=== PATIENT | female | born 1940 ===

== ENCOUNTER 2018-04-30 13:08 | Inpatient (IN) | payer MEDICARE, MEDICAID ==
--- NOTE | 2018-04-30 13:31 | C.PDOC ---
History Of Present Illness 77 y/o female presents to the ED complaining of SOB for the last 2 weeks. Patient reports associated chest pressure, and notes SOB is worse on exertion. She also notes her legs are swollen. Patient has PMHx of A Fib and has not seen her doctor as he retired a month ago. States she was referred to Dr. Rocha but has not seen him yet. Otherwise she denies any dizziness, palpitations, nausea, vomiting, abdominal pain, fevers, visual changes, or leg pain. Time Seen by Provider: 04/30/18 13:12 Chief Complaint (Nursing): Shortness Of Breath History Per: Patient History/Exam Limitations: no limitations Onset/Duration Of Symptoms: Days Current Symptoms Are (Timing): Still Present Quality: Pressure Exacerbating Factor(s): Laying Flat Associated Symptoms: Chest Pain, Ankle/Leg Swelling Past Medical History Reviewed: Historical Data, Nursing Documentation, Vital Signs Vital Signs: Last Vital Signs Temp 98.1 F 04/30/18 13:19 Pulse 82 04/30/18 13:19 Resp 18 04/30/18 13:19 BP 155/84 H 04/30/18 13:19 Pulse Ox 99 04/30/18 13:19 - Medical History PMH: Arthritis, Asthma, Diabetes, HTN, Hypercholesterolemia Other Surgeries: Eye surgery, Hysterectomy Family History: States: Unknown Family Hx - Social History Hx Alcohol Use: No Hx Substance Use: No - Immunization History Hx Tetanus Toxoid Vaccination: No Hx Influenza Vaccination: No Hx Pneumococcal Vaccination: No Review Of Systems Constitutional: Negative for: Fever, Chills Eyes: Negative for: Vision Change Cardiovascular: Positive for: Chest Pain ("pressure"). Negative for: Palpitations, Light Headedness Respiratory: Positive for: Shortness of Breath, SOB with Excertion Gastrointestinal: Negative for: Nausea, Vomiting, Abdominal Pain, Diarrhea Musculoskeletal: Negative for: Back Pain Skin: Negative for: Rash Neurological: Negative for: Weakness, Numbness, Dizziness Physical Exam - Physical Exam Appears: Non-toxic, No Acute Distress, Other (Appears winded at rest) Skin: Warm, Dry, No Rash Head: Atraumatic, Normacephalic Eye(s): bilateral: Normal Inspection, PERRL, EOMI Oral Mucosa: Moist Neck: Normal ROM, Supple Chest: Symmetrical Cardiovascular: Rhythm Irregular (Irregularly Irregular), Murmur (Systolic murmur) Respiratory: No Decreased Breath Sounds, Rales (Bibasilar), No Rhonchi, No Wheez ing Gastrointestinal/Abdominal: Soft, No Tenderness, No Distention Extremity: Normal ROM, No Calf Tenderness, Swelling (Tense pitting edema bilaterally, all the way up to thighs) Pulses: Left Dorsalis Pedis: Normal, Right Dorsalis Pedis: Normal Neurological/Psych: Oriented x3, Normal Cranial Nerves, Other (No focal deficits) ED Course And Treatment - Laboratory Results Result Diagrams: 04/30/18 14:13 04/30/18 14:13 Lab Interpretation: Abnormal (BNP 2510) ECG: Interpreted By Me ECG Rhythm: Atrial Fibrillation (with old inferior and anterior infarcts) ECG Interpretation: No Acute Changes O2 Sat by Pulse Oximetry: 99 (RA) Pulse Ox Interpretation: Normal - Radiology CXR: Interpreted by Me CXR Interpretation: Yes: Cardiomegaly (with CHF and right pleural effusion) Progress Note: Labs, EKG, and CXR ordered. Patient given 40mg IV Lasix. Reevaluation Time: 15:08 Reassessment Condition: Improved (after IV lasix.) - Physician Consult Information Time Consulting Physician Contacted: 15:09 Physician Contacted: Michelle Alfaro Outcome Of Conversation: Patient to be admitted to [facility] for CHF Disposition - Disposition Disposition: HOSPITALIZED Disposition Time: 15:10 Condition: IMPROVED - POA Present On Arrival: None - Clinical Impression Clinical Impression: Acute CHF - Scribe Statement The provider has reviewed the documentation as recorded by the Alexis Abarca Provider Attestation: All medical record entries made by the Alexis were at my direction and personally dictated by me. I have reviewed the chart and agree that the record accurately reflects my personal performance of the history, physical exam, medical decision making, and the department course for this patient. I have also personally directed, reviewed, and agree with the discharge instructions and disposition.
[2018-04-30 14:19] LABS: BASO # 0.1 K/uL (0.0-0.2); BASO % 1.1 % (0.0-2.0); EOS # 0.1 K/uL (0.0-0.7); EOS % 2.4 % (0.0-4.0); HEMOGLOBIN 10.2 g/dL (11.0-16.0); LYMPH # 0.8 K/uL (1.0-4.3); LYMPH % 16.6 % (20.0-40.0); MEAN CELL VOLUME 92.5 fL (81.0-99.0); MEAN CORPUSCULAR HEMOGLOBIN 28.8 pg (27.0-31.0); MEAN CORPUSCULAR HGB CONC 31.1 g/dL (33.0-37.0); MEAN PLATELET VOLUME 10.2 fL (7.2-11.7); MONO # 0.6 K/uL (0.0-0.8); MONO % 12.2 % (0.0-10.0); NEUT # 3.2 K/uL (1.8-7.0); NEUT % 67.7 % (50.0-75.0); NRBC % 0.1 % (0.0-2.0); RBC 3.53 Mil/uL (3.80-5.20); RED CELL DISTRIBUTION WIDTH 16.6 % (11.5-14.5); WHITE BLOOD COUNT 4.8 K/uL (4.8-10.8)
[2018-04-30 14:39] LABS: BLOOD UREA NITROGEN 26 mg/dL (7-17); CALCIUM 9.3 mg/dl (8.6-10.4); GFR NON-AFRICAN AMERICAN 44
[2018-04-30 14:43] LABS: ALB/GLOB RATIO 1.1 (1.0-2.1); ALBUMIN 4.3 g/dL (3.5-5.0); ALT/SGPT < 6 U/L (9-52); AST/SGOT 52 U/L (14-36)
[2018-04-30 14:49] LABS: B-TYPE NATRIURETIC PEPTIDE 2510 pg/mL (0-900); SQUAMOUS EPITHIAL 2 /hpf (0-5); URINE BACTERIA MANY (<OCC); URINE BILIRUBIN NEGATIVE (NEGATIVE); URINE BLOOD NEGATIVE (NEGATIVE); URINE CLARITY Clear (Clear); URINE COLOR Yellow (YELLOW); URINE GLUCOSE (UA) NORMAL (Normal); URINE LEUKOCYTE ESTERASE NEG Leu/uL (Negative); URINE PROTEIN NEGATIVE (NEGATIVE); URINE UROBILINOGEN NORMAL mg/dL (0.2-1.0)
--- NOTE | 2018-04-30 17:06 | RAD ---
HISTORY: SOB COMPARISON: None available TECHNIQUE: Chest, one view. FINDINGS: Examination limited by habitus and hypoinflation. LUNGS: Small right pleural effusion and/or consolidation. Right hilar prominence. Mild pulmonary venous congestion. No definite pneumothorax. CARDIOVASCULAR: Cardiomegaly. OSSEOUS STRUCTURES: No acute osseous abnormality identified. VISUALIZED UPPER ABDOMEN: Unremarkable. OTHER FINDINGS: None. IMPRESSION: Cardiomegaly. Small right pleural effusion and/or consolidation. Right hilar prominence. Mild pulmonary venous congestion.
[2018-04-30 17:52] VITALS: RESP 20
--- NOTE | 2018-04-30 19:56 | CP.PCM.HP ---
Past Patient History - Past Social History Smoking Status: Never Smoked - CARDIAC Hx Hypercholesterolemia: Yes Hx Hypertension: Yes - PULMONARY Hx Asthma: Yes - HEENT Hx HEENT Problems: Yes Hx Cataracts: Yes Hx Glaucoma: Yes - ENDOCRINE/METABOLIC Hx Endocrine Disorders: Yes Hx Diabetes Mellitus Type 2: Yes - MUSCULOSKELETAL/RHEUMATOLOGICAL Hx Arthritis: Yes - PSYCHIATRIC Hx Substance Use: No - SURGICAL HISTORY Hx Surgeries: Yes Hx Hysterectomy: Yes Other/Comment: eye sx - ANESTHESIA Hx Anesthesia: Yes Meds Allergies/Adverse Reactions: Allergies Allergy/AdvReac Type Severity Reaction Status Date / Time No Known Allergies Allergy Verified 04/30/18 13:22 Physical Exam - Constitutional Appears: Well - Head Exam Head Exam: ATRAUMATIC, NORMAL INSPECTION, NORMOCEPHALIC - Eye Exam Eye Exam: EOMI, Normal appearance, PERRL Pupil Exam: NORMAL ACCOMODATION, PERRL - ENT Exam ENT Exam: Mucous Membranes Moist, Normal Exam - Neck Exam Neck exam: Positive for: Normal Inspection - Respiratory Exam Respiratory Exam: Decreased Breath Sounds - Cardiovascular Exam Cardiovascular Exam: REGULAR RHYTHM, +S1, +S2 - GI/Abdominal Exam GI & Abdominal Exam: Diminished Bowel Sounds, Soft - Rectal Exam Rectal Exam: Deferred Results - Vital Signs Recent Vital Signs: Last Vital Signs Temp 97.8 F 04/30/18 19:48 Pulse 90 04/30/18 19:48 Resp 20 04/30/18 19:48 BP 122/69 04/30/18 19:48 Pulse Ox 97 04/30/18 19:48 - Labs Result Diagrams: 04/30/18 14:13 04/30/18 14:13 Labs: Laboratory Results - last 24 hr 04/30/18 04/30/18 04/30/18 14:13 14:13 14:13 WBC 4.8 RBC 3.53 L Hgb 10.2 L Hct 32.7 L MCV 92.5 MCH 28.8 MCHC 31.1 L RDW 16.6 H Plt Count 149 MPV 10.2 Neut % (Auto) 67.7 Lymph % (Auto) 16.6 L [place] % (Auto) 12.2 H Eos % (Auto) 2.4 Baso % (Auto) 1.1 Neut # (Auto) 3.2 Lymph # (Auto) 0.8 L [place] # (Auto) 0.6 Eos # (Auto) 0.1 Baso # (Auto) 0.1 Sodium 138 Potassium 5.2 Chloride 99 Carbon Dioxide 30 Anion Gap 14 BUN 26 H Creatinine 1.2 Est GFR ( Amer) 53 Est GFR (Non-Af Amer) 44 Random Glucose 91 Calcium 9.3 Total Bilirubin 1.2 AST 52 H ALT < 6 L Alkaline Phosphatase 93 Troponin I < 0.0120 NT-Pro-B Natriuret Pep 2510 H Total Protein 8.0 Albumin 4.3 Globulin 3.7 Albumin/Globulin Ratio 1.1 Urine Color Yellow Urine Clarity Clear Urine pH 6.0 Ur Specific [place] 1.008 Urine Protein Negative Urine Glucose (UA) Normal Urine Ketones Negative Urine Blood Negative Urine Nitrate Negative Urine Bilirubin Negative Urine Urobilinogen Normal Ur Leukocyte Esterase Neg Urine WBC (Auto) 3 Urine RBC (Auto) 1 Ur Squamous Epith Cells 2 Urine Bacteria Many H
[2018-04-30] MEDS: Brimonidine 0.2% Opth Sol (5ml) OS SCH (22:49)
[2018-05-01] MEDS: (Novolog) Insulin Aspart, Recombinant 100 u/ml 10 ml vial SC SCH ×4 (08:29→21:45)
[2018-05-01 08:54] LABS: BASO % 1.3 % (0.0-2.0); EOS # 0.1 K/uL (0.0-0.7); EOS % 3.4 % (0.0-4.0); HEMOGLOBIN 9.9 g/dL (11.0-16.0); LYMPH # 0.8 K/uL (1.0-4.3); LYMPH % 21.2 % (20.0-40.0); MEAN CELL VOLUME 90.7 fL (81.0-99.0); MEAN CORPUSCULAR HEMOGLOBIN 28.6 pg (27.0-31.0); MEAN CORPUSCULAR HGB CONC 31.5 g/dL (33.0-37.0); MEAN PLATELET VOLUME 9.8 fL (7.2-11.7); MONO # 0.6 K/uL (0.0-0.8); MONO % 14.5 % (0.0-10.0); NEUT # 2.3 K/uL (1.8-7.0); NEUT % 59.6 % (50.0-75.0); NRBC % 0.1 % (0.0-2.0); RBC 3.48 Mil/uL (3.80-5.20); RED CELL DISTRIBUTION WIDTH 16.6 % (11.5-14.5); WHITE BLOOD COUNT 3.8 K/uL (4.8-10.8)
[2018-05-01 09:11] LABS: ALB/GLOB RATIO 1.2 (1.0-2.1); ALT/SGPT 14 U/L (9-52); AST/SGOT 29 U/L (14-36); BLOOD UREA NITROGEN 26 mg/dL (7-17); CALCIUM 9.3 mg/dl (8.6-10.4); GFR NON-AFRICAN AMERICAN 40
[2018-05-01 09:18] LABS: B-TYPE NATRIURETIC PEPTIDE 2760 pg/mL (0-900)
[2018-05-01] MEDS: Potassium Chloride 10 mEq ER Tab PO SCH (09:40)
[2018-05-01] MEDS: Pantoprazole 40 mg EC Tab PO SCH (09:40)
--- NOTE | 2018-05-01 10:34 | CARD ---
APPROVED REPORT Date of service: 04/30/2018 EKG Measurement Heart [id number] <Conclusion> Atrial fibrillation Possible Inferior infarct, age undetermined Cannot rule out Anterior infarct, age undetermined Abnormal ECG
[2018-05-01] MEDS: Brimonidine 0.2% Opth Sol (5ml) OS SCH ×3 (11:51→17:14)
[2018-05-01 12:16] LABS: CK-MB 0.38 ng/mL (0.0-3.38)
--- NOTE | 2018-05-01 13:59 | CP.PCM.CON ---
History of Present Illness - History of Present Illness History of Present Illness: 77 y/o female presents to the ED complaining of SOB for the last 2 weeks. Patient reports associated chest pressure, and notes SOB is worse on exertion. She also notes her legs are swollen. Patient has PMHx of A Fib and has not seen her doctor as he retired a month ago. States she was referred to Dr. Rocha but has not seen him yet. Otherwise she denies any dizziness, palpitations, nausea, vomiting, abdominal pain, fevers, visual changes, or leg pain. Review of Systems - Review of Systems All systems: reviewed and no additional remarkable complaints except Past Patient History - Past Medical History & Family History Past Medical History?: Yes - Past Social History Smoking Status: Never Smoked - CARDIAC Hx Hypercholesterolemia: Yes Hx Hypertension: Yes - PULMONARY Hx Respiratory Disorders: Yes Hx Asthma: Yes - HEENT Hx HEENT Problems: Yes Hx Cataracts: Yes Hx Glaucoma: Yes - ENDOCRINE/METABOLIC Hx Diabetes Mellitus Type 2: Yes - MUSCULOSKELETAL/RHEUMATOLOGICAL Hx Arthritis: Yes - PSYCHIATRIC Hx Substance Use: No - SURGICAL HISTORY Hx Surgeries: Yes Hx Hysterectomy: Yes Other/Comment: eye sx - ANESTHESIA Hx Anesthesia: Yes Hx Anesthesia Reactions: No Meds Allergies/Adverse Reactions: Allergies Allergy/AdvReac Type Severity Reaction Status Date / Time No Known Allergies Allergy Verified 04/30/18 13:22 - Medications Medications: Current Medications Aspirin (Aspirin Chewable) 81 mg PO DAILY [facility] Last Admin: 05/01/18 09:40 Dose: 81 mg Brimonidine Tartrate (Alphagan 0.2% Opht) 0.05 ml OS BID [facility] Last Admin: 05/01/18 12:36 Dose: 1 drop Folic Acid (Folic Acid) 1 mg PO DAILY [facility] Last Admin: 05/01/18 09:40 Dose: 1 mg Insulin Aspart (Novolog) 0 unit SC [facility]; Protocol Last Admin: 05/01/18 12:29 Dose: Not Given [facility] Pantoprazole Sodium (Protonix Ec Tab) 40 mg PO DAILY [facility] Last Admin: 05/01/18 09:40 Dose: 40 mg Potassium Chloride (Klor-Con 10) 10 meq PO DAILY [facility] Last Admin: 05/01/18 09:40 Dose: 10 meq Rivaroxaban (Xarelto) 15 mg PO DAILY [facility] Last Admin: 05/01/18 09:42 Dose: 15 mg Rosuvastatin Calcium (Crestor) 20 mg PO HS [facility] Sitagliptin Phosphate (Januvia) 50 mg PO DAILY [facility] Last Admin: 05/01/18 09:40 Dose: 50 mg Tolterodine Tartrate (Detrol) 2 mg PO BID [facility] Last Admin: 05/01/18 11:51 Dose: 2 mg Physical Exam - Constitutional Appears: No Acute Distress (Obese) - Head Exam Head Exam: ATRAUMATIC, NORMAL INSPECTION, NORMOCEPHALIC - Eye Exam Eye Exam: EOMI, Normal appearance - ENT Exam ENT Exam: Mucous Membranes Moist, Normal Oropharynx - Neck Exam Neck exam: Positive for: Normal Inspection - Respiratory Exam Respiratory Exam: Clear to Auscultation Bilateral, NORMAL BREATHING PATTERN. absent: Rales, Rhonchi, Wheezes - Cardiovascular Exam Cardiovascular Exam: RRR, +S1, +S2 - GI/Abdominal Exam GI & Abdominal Exam: Normal Bowel Sounds, Soft. absent: Tenderness - Extremities Exam Extremities exam: Positive for: normal inspection, pedal edema, pedal pulses present. Negative for: calf tenderness - Neurological Exam Neurological exam: Alert, Oriented x3 - Psychiatric Exam Psychiatric exam: Normal Affect, Normal Mood - Skin Skin Exam: Normal Color, Warm Results - Vital Signs Recent Vital Signs: Last Vital Signs Temp 98.0 F 05/01/18 07:00 Pulse 84 05/01/18 07:00 Resp 20 05/01/18 07:00 BP 151/84 H 05/01/18 07:00 Pulse Ox 95 05/01/18 07:00 - Labs Result Diagrams: 05/01/18 08:47 05/01/18 08:47 Labs: Laboratory Results - last 24 hr 04/30/18 04/30/18 04/30/18 14:13 14:13 14:13 WBC 4.8 RBC 3.53 L Hgb 10.2 L Hct 32.7 L MCV 92.5 MCH 28.8 MCHC 31.1 L RDW 16.6 H Plt Count 149 MPV 10.2 Neut % (Auto) 67.7 Lymph % (Auto) 16.6 L [place] % (Auto) 12.2 H Eos % (Auto) 2.4 Baso % (Auto) 1.1 Neut # (Auto) 3.2 Lymph # (Auto) 0.8 L [place] # (Auto) 0.6 Eos # (Auto) 0.1 Baso # (Auto) 0.1 Sodium 138 Potassium 5.2 Chloride 99 Carbon Dioxide 30 Anion Gap 14 BUN 26 H Creatinine 1.2 Est GFR ( Amer) 53 Est GFR (Non-Af Amer) 44 POC Glucose (mg/dL) Random Glucose 91 Calcium 9.3 Phosphorus Magnesium Total Bilirubin 1.2 AST 52 H ALT < 6 L Alkaline Phosphatase 93 Total Creatine Kinase CK-MB (Mass) Troponin I < 0.0120 NT-Pro-B Natriuret Pep 2510 H Total Protein 8.0 Albumin 4.3 Globulin 3.7 Albumin/Globulin Ratio 1.1 Urine Color Yellow Urine Clarity Clear Urine pH 6.0 Ur Specific [place] 1.008 Urine Protein Negative Urine Glucose (UA) Normal Urine Ketones Negative Urine Blood Negative Urine Nitrate Negative Urine Bilirubin Negative Urine Urobilinogen Normal Ur Leukocyte Esterase Neg Urine WBC (Auto) 3 Urine RBC (Auto) 1 Ur Squamous Epith Cells 2 Urine Bacteria Many H 05/01/18 05/01/18 05/01/18 06:31 08:47 08:47 WBC 3.8 L RBC 3.48 L Hgb 9.9 L Hct 31.5 L MCV 90.7 MCH 28.6 MCHC 31.5 L RDW 16.6 H Plt Count 136 MPV 9.8 Neut % (Auto) 59.6 Lymph % (Auto) 21.2 [place] % (Auto) 14.5 H Eos % (Auto) 3.4 Baso % (Auto) 1.3 Neut # (Auto) 2.3 Lymph # (Auto) 0.8 L [place] # (Auto) 0.6 Eos # (Auto) 0.1 Baso # (Auto) 0.0 Sodium 138 Potassium 3.7 Chloride 97 L Carbon Dioxide 33 H Anion Gap 13 BUN 26 H Creatinine 1.3 H Est GFR ( Amer) 48 Est GFR (Non-Af Amer) 40 POC Glucose (mg/dL) 87 Random Glucose 98 Calcium 9.3 Phosphorus 3.7 Magnesium 1.7 Total Bilirubin 0.9 AST 29 ALT 14 Alkaline Phosphatase 99 Total Creatine Kinase 31 CK-MB (Mass) 0.40 Troponin I < 0.0120 NT-Pro-B Natriuret Pep 2760 H Total Protein 7.4 Albumin 4.0 Globulin 3.4 Albumin/Globulin Ratio 1.2 Urine Color Urine Clarity Urine pH Ur Specific [place] Urine Protein Urine Glucose (UA) Urine Ketones Urine Blood Urine Nitrate Urine Bilirubin Urine Urobilinogen Ur Leukocyte Esterase Urine WBC (Auto) Urine RBC (Auto) Ur Squamous Epith Cells Urine Bacteria 05/01/18 05/01/18 11:42 12:11 WBC RBC Hgb Hct MCV MCH MCHC RDW Plt Count MPV Neut % (Auto) Lymph % (Auto) [place] % (Auto) Eos % (Auto) Baso % (Auto) Neut # (Auto) Lymph # (Auto) [place] # (Auto) Eos # (Auto) Baso # (Auto) Sodium Potassium Chloride Carbon Dioxide Anion Gap BUN Creatinine Est GFR ( Amer) Est GFR (Non-Af Amer) POC Glucose (mg/dL) 123 H Random Glucose Calcium Phosphorus Magnesium Total Bilirubin AST ALT Alkaline Phosphatase Total Creatine Kinase 32 CK-MB (Mass) 0.38 Troponin I < 0.0120 NT-Pro-B Natriuret Pep Total Protein Albumin Globulin Albumin/Globulin Ratio Urine Color Urine Clarity Urine pH Ur Specific [place] Urine Protein Urine Glucose (UA) Urine Ketones Urine Blood Urine Nitrate Urine Bilirubin Urine Urobilinogen Ur Leukocyte Esterase Urine WBC (Auto) Urine RBC (Auto) Ur Squamous Epith Cells Urine Bacteria - EKG Data EKG Interpreted by: Myself - Imaging and Cardiology Chest x-ray Status: Image reviewed by me Assessment & Plan - Assessment and Plan (Free Text) Assessment: > EKG: AFIB, no acute ischemic changes > [place] ruled out > ECHO directly viewsed by me: AFIB, normal LVEF, LVH, Markedly dilated LA, RV d ysfunction, dilated IVC, moderate PASP at 42-44mmHg, mild-mod TR, aortic sclerosis. > CXR: effusion right, mild congestion > elevated nt-BNP Imopression Acute on chronic diastolic dysfuntion RV failure Moderate PULM HTN Cor Pulmonale AFIB: chronic HTN: uncontrolled Plan: cont xarelto, add lasix 40mg IVP daily, monitor lytes > add coreg 3.125 BID and titrate > add aldactone 25 daily > anemia w/u
--- NOTE | 2018-05-01 15:53 | CARD ---
APPROVED REPORT Date of service: 05/01/2018 EXAM: Two-dimensional and M-mode echocardiogram with Doppler and color Doppler. INDICATION Dyspnea Congestive Heart Failure RISK FACTORS Hypertension Hyperlipidemia Diabetes 2D DIMENSIONS IVSd1.1 (0.7-1.1cm)LVDd3.6 (3.9-5.9cm) LVOT Diameter2.1 (1.8-2.4cm)PWd1.1 (0.7-1.1cm) LA [id number] (18-58mL)LVDs2.8 (2.5-4.0cm) FS (%) 22.2 %LVEF (%)55.0 (>50%) LVEF (Lopez's)60 % M-Mode DIMENSIONS Left Atrium (MM)6.25 (2.5-4.0cm)IVSd0.97 (0.7-1.1cm) Aortic Root2.85 (2.2-3.7cm)LVDd5.31 (4.0-5.6cm) Aortic Cusp Exc.1.04 (1.5-2.0cm)PWd1.81 (0.7-1.1cm) FS (%) 13 %LVDs4.64 (2.0-3.8cm) LVEF (%)57 (>50%) Mitral Valve MV E Xtctzosv95.5cm/sMV A Krrysdoq45.4cm/sE/A ratio2.5 TDI Lateral E' Peak V8.09cm/sMedial E' Peak V7.19cm/sE/Lateral E'10.1 E/Medial E'11.3 Tricuspid Valve TR Peak [id number]/sTR Peak [id number] LEFT VENTRICLE The left ventricle is normal size. There is borderline concentric left ventricular hypertrophy. Left ventricle systolic function is normal. The Ejection Fraction is 65-70%. There is normal LV segmental wall motion. The left ventricular diastolic function is normal. There is no ventricular septal defect visualized. RIGHT VENTRICLE The right ventricle is normal size. The right ventricular systolic function is normal. ATRIA The left atrium is moderately dilated. The right atrium size is normal. AORTIC VALVE The aortic valve is moderately sclerotic. The aortic valve is tri-cuspid. No aortic regurgitation is present. There is no aortic valvular stenosis. MITRAL VALVE Mitral annular calcification is mild. There is no evidence of mitral valve prolapse. Mitral regurgitation is trace. TRICUSPID VALVE The tricuspid valve is normal in structure. There is moderate tricuspid regurgitation. Right ventricular systolic pressure is estimated at 40-50 mmHg. There is moderate pulmonary hypertension. PULMONIC VALVE The pulmonic valve is not well visualized. There is trace pulmonic valvular regurgitation. GREAT VESSELS The aortic root is normal in size. The ascending aorta is normal in size. The IVC is dilated. PERICARDIAL EFFUSION There is no pericardial effusion. <Conclusion> There is borderline concentric left ventricular hypertrophy. Left ventricle systolic function is normal. The Ejection Fraction is 65-70%. The left ventricular diastolic function is normal. There is moderate pulmonary hypertension.
--- NOTE | 2018-05-01 17:58 | CP.PCM.PN ---
Subjective - Date & Time of Evaluation Date of Evaluation: 05/01/18 Time of Evaluation: 12:15 - Subjective Subjective: clinically same Objective - Vital Signs/Intake and Output Vital Signs (last 24 hours): Temp Pulse Resp BP Pulse Ox 97.8 F 88 20 142/77 100 05/01/18 15:00 05/01/18 15:00 05/01/18 15:00 05/01/18 15:00 05/01/18 15:00 Intake and Output: 05/01/18 05/01/18 06:59 18:59 Intake Total 480 Balance 480 - Medications Medications: Current Medications Aspirin (Aspirin Chewable) [address] [facility] Last Admin: 05/01/18 09:40 Dose: 81 mg Brimonidine Tartrate (Alphagan 0.2% Opht) 0.[address] [facility] Last Admin: 05/01/18 17:14 Dose: 1 drop Folic Acid (Folic Acid) [address] [facility] Last Admin: 05/01/18 09:40 Dose: 1 mg Insulin Aspart (Novolog) 0 unit SC [facility]; Protocol Last Admin: 05/01/18 17:11 Dose: Not Given [facility] Pantoprazole Sodium (Protonix Ec Tab) [address] [facility] Last Admin: 05/01/18 09:40 Dose: 40 mg Potassium Chloride (Klor-Con 10) [address] [facility] Last Admin: 05/01/18 09:40 Dose: 10 meq Rivaroxaban (Xarelto) [address] [facility] Last Admin: 05/01/18 09:42 Dose: 15 mg Rosuvastatin Calcium (Crestor) [address] [facility] Sitagliptin Phosphate (Januvia) [address] [facility] Last Admin: 05/01/18 09:40 Dose: 50 mg Tolterodine Tartrate (Detrol) [address] [facility] Last Admin: 05/01/18 17:14 Dose: 2 mg - Labs Labs: 05/01/18 08:47 05/01/18 08:47 - Constitutional Appears: Well - Head Exam Head Exam: ATRAUMATIC, NORMAL INSPECTION, NORMOCEPHALIC - Eye Exam Eye Exam: EOMI, Normal appearance, PERRL Pupil Exam: NORMAL ACCOMODATION, PERRL - ENT Exam ENT Exam: Mucous Membranes Moist, Normal Exam - Neck Exam Neck Exam: Full ROM, Normal Inspection. absent: Lymphadenopathy - Respiratory Exam Respiratory Exam: Decreased Breath Sounds - Cardiovascular Exam Cardiovascular Exam: REGULAR RHYTHM, +S1, +S2 - GI/Abdominal Exam GI & Abdominal Exam: Soft, Diminished Bowel Sounds - Rectal Exam Rectal Exam: Deferred
[2018-05-02] MEDS: (Novolog) Insulin Aspart, Recombinant 100 u/ml 10 ml vial SC SCH ×3 (07:41→17:25)
[2018-05-02] MEDS: Brimonidine 0.2% Opth Sol (5ml) OS SCH ×2 (10:45→18:00)
[2018-05-02] MEDS: Pantoprazole 40 mg EC Tab PO SCH (10:46)
[2018-05-02] MEDS: Albuterol 0.042% Inhal Sol (1.25 mg/3 mL) UD INH SCH ×2 (13:50→20:24)
[2018-05-02] MEDS: Potassium Chloride 10 mEq ER Tab PO SCH (15:20)
[2018-05-02 16:45] LABS: ARTERIAL BLOOD GAS HCO3 31.5 mmol/L (21-28); ARTERIAL BLOOD GAS HEMOGLOBIN 9.5 g/dL (11.7-17.4); ARTERIAL BLOOD GAS O2 SAT 100.2 % (95-98); ARTERIAL BLOOD GAS PCO2 48 mm/Hg (35-45); ARTERIAL BLOOD GAS PH 7.45 (7.35-7.45); ARTERIAL BLOOD GAS PO2 130 mm/Hg (80-100); ARTERIAL BLOOD GAS TCO2 34.9 mmol/L (22-28)
--- NOTE | 2018-05-02 19:44 | CP.PCM.PN ---
Subjective - Date & Time of Evaluation Date of Evaluation: 05/02/18 Time of Evaluation: 11:45 - Subjective Subjective: clinically same Objective - Vital Signs/Intake and Output Vital Signs (last 24 hours): Temp Pulse Resp BP Pulse Ox 97.9 F 99 H 20 126/61 100 05/02/18 16:00 05/02/18 16:00 05/02/18 16:00 05/02/18 16:00 05/02/18 16:00 - Medications Medications: Current Medications Albuterol Sulfate (Albuterol 0.042% Inhal Zulma (1.25mg/3ml) Ud) 1.25 mg INH RQ6 [facility] Last Admin: 05/02/18 13:50 Dose: 1.25 mg Aspirin (Aspirin Chewable) 81 mg PO DAILY [facility] Last Admin: 05/02/18 10:46 Dose: 81 mg Brimonidine Tartrate (Alphagan 0.2% Opht) 0.05 ml OS BID [facility] Last Admin: 05/02/18 18:00 Dose: 1 drop Carvedilol (Coreg) 3.125 mg PO BID [facility] Last Admin: 05/02/18 18:00 Dose: 3.125 mg Folic Acid (Folic Acid) 1 mg PO DAILY [facility] Last Admin: 05/02/18 10:45 Dose: 1 mg Furosemide (Lasix) 40 mg IVP Q12 [facility] Insulin Aspart (Novolog) 0 unit SC [facility]; Protocol Last Admin: 05/02/18 17:25 Dose: Not Given Metformin HCl (Glucophage) 500 mg PO BIDCC [facility] Pantoprazole Sodium (Protonix Ec Tab) 40 mg PO DAILY [facility] Last Admin: 05/02/18 10:46 Dose: 40 mg Potassium Chloride (Klor-Con 10) 10 meq PO DAILY [facility] Last Admin: 05/02/18 15:20 Dose: Not Given Rivaroxaban (Xarelto) 15 mg PO DAILY [facility] Last Admin: 05/02/18 10:47 Dose: 15 mg Rosuvastatin Calcium (Crestor) 20 mg PO HS [facility] Last Admin: 05/01/18 21:45 Dose: 20 mg Sitagliptin Phosphate (Januvia) 50 mg PO DAILY [facility] Last Admin: 05/02/18 10:46 Dose: 50 mg Spironolactone (Aldactone) 25 mg PO DAILY [facility] Last Admin: 05/02/18 10:46 Dose: 25 mg Tolterodine Tartrate (Detrol) 2 mg PO BID [facility] Last Admin: 05/02/18 18:00 Dose: 2 mg - Labs Labs: 05/01/18 08:47 05/01/18 08:47 - Constitutional Appears: Well - Head Exam Head Exam: ATRAUMATIC, NORMAL INSPECTION, NORMOCEPHALIC - Eye Exam Eye Exam: EOMI, Normal appearance, PERRL Pupil Exam: NORMAL ACCOMODATION, PERRL - ENT Exam ENT Exam: Mucous Membranes Moist, Normal Exam - Neck Exam Neck Exam: Full ROM, Normal Inspection. absent: Lymphadenopathy - Respiratory Exam Respiratory Exam: Decreased Breath Sounds - Cardiovascular Exam Cardiovascular Exam: REGULAR RHYTHM, +S1, +S2 - GI/Abdominal Exam GI & Abdominal Exam: Soft, Diminished Bowel Sounds - Rectal Exam Rectal Exam: Deferred
--- NOTE | 2018-05-02 21:29 | RAD ---
Chest x-ray single frontal view HISTORY: Congestive heart failure. Comparison: 04/30/2018 FINDINGS: Moderate to severe venous congestion. Moderate right pleural effusion. Patchy increased markings at the lung bases. Marked cardiomegaly. Tortuous ectatic aorta. Biapical pleural thickening with upper lobe granulomatous changes. Degenerative changes in the spine and shoulders. Impression: Moderate to severe venous congestion. Moderate right pleural effusion. Patchy increased markings at the lung bases. Marked cardiomegaly. Tortuous ectatic aorta. Biapical pleural thickening with upper lobe granulomatous changes. Degenerative changes in the spine and shoulders.
[2018-05-03] MEDS: Albuterol 0.042% Inhal Sol (1.25 mg/3 mL) UD INH SCH ×4 (01:25→20:23)
[2018-05-03] MEDS: (Novolog) Insulin Aspart, Recombinant 100 u/ml 10 ml vial SC SCH ×4 (08:00→21:52)
[2018-05-03 08:51] LABS: CALCIUM 9.3 mg/dl (8.6-10.4)
[2018-05-03] MEDS: Potassium Chloride 10 mEq ER Tab PO SCH (09:32)
[2018-05-03] MEDS: Pantoprazole 40 mg EC Tab PO SCH (09:32)
[2018-05-03] MEDS: Brimonidine 0.2% Opth Sol (5ml) OS SCH ×2 (09:34→18:42)
--- NOTE | 2018-05-03 13:41 | CP.PCM.PN ---
Subjective - Date & Time of Evaluation Date of Evaluation: 05/03/18 Time of Evaluation: 13:43 - Subjective Subjective: Obese still with dyspnea with exertion + LE edema creat bump noted Co2 34 K+ nml HR >100 Objective - Vital Signs/Intake and Output Vital Signs (last 24 hours): Temp Pulse Resp BP Pulse Ox 97.7 F 113 H 20 150/81 95 05/03/18 07:00 05/03/18 07:00 05/03/18 07:00 05/03/18 09:33 05/03/18 07:00 Intake and Output: 05/03/18 05/03/18 06:59 18:59 Intake Total 350 Balance 350 - Medications Medications: Current Medications Albuterol Sulfate (Albuterol 0.042% Inhal Zulma (1.25mg/3ml) Ud) 1.25 mg INH RQ6 [facility] Last Admin: 05/03/18 08:00 Dose: Not Given Aspirin (Aspirin Chewable) 81 mg PO DAILY [facility] Last Admin: 05/03/18 09:32 Dose: 81 mg Brimonidine Tartrate (Alphagan 0.2% Opht) 0.05 ml OS BID [facility] Last Admin: 05/03/18 09:34 Dose: 1 drop Carvedilol (Coreg) 3.125 mg PO BID [facility] Last Admin: 05/03/18 09:32 Dose: 3.125 mg Folic Acid (Folic Acid) 1 mg PO DAILY [facility] Last Admin: 05/03/18 09:32 Dose: 1 mg Furosemide (Lasix) 40 mg IVP Q12 [facility] Last Admin: 05/03/18 09:33 Dose: 40 mg Insulin Aspart (Novolog) 0 unit SC [facility]; Protocol Last Admin: 05/03/18 12:51 Dose: Not Given [facility] Pantoprazole Sodium (Protonix Ec Tab) 40 mg PO DAILY [facility] Last Admin: 05/03/18 09:32 Dose: 40 mg Potassium Chloride (Klor-Con 10) 10 meq PO DAILY [facility] Last Admin: 05/03/18 09:32 Dose: 10 meq Rivaroxaban (Xarelto) 15 mg PO DAILY [facility] Last Admin: 05/03/18 09:33 Dose: 15 mg Rosuvastatin Calcium (Crestor) 20 mg PO HS [facility] Last Admin: 05/02/18 22:21 Dose: 20 mg Sitagliptin Phosphate (Januvia) 50 mg PO DAILY [facility] Last Admin: 05/03/18 09:32 Dose: 50 mg Spironolactone (Aldactone) 25 mg PO DAILY [facility] Last Admin: 05/03/18 09:32 Dose: 25 mg Tolterodine Tartrate (Detrol) 2 mg PO BID [facility] Last Admin: 05/03/18 09:33 Dose: 2 mg - Labs Labs: 05/01/18 08:47 05/03/18 08:26 - Constitutional Appears: No Acute Distress - Head Exam Head Exam: ATRAUMATIC, NORMAL INSPECTION, NORMOCEPHALIC - Eye Exam Eye Exam: EOMI, Normal appearance. absent: Scleral icterus - ENT Exam ENT Exam: Mucous Membranes Moist, Normal Oropharynx - Neck Exam Neck Exam: Full ROM, Normal Inspection. absent: Tenderness - Respiratory Exam Respiratory Exam: Clear to Ausculation Bilateral, NORMAL BREATHING PATTERN. absent: Rhonchi, Wheezes - Cardiovascular Exam Cardiovascular Exam: Irregular Rhythm, +S1. absent: +S4, Murmur - GI/Abdominal Exam GI & Abdominal Exam: Soft, Normal Bowel Sounds. absent: Tenderness - Extremities Exam Extremities Exam: Full ROM, Normal Inspection, Pedal Edema. absent: Calf Tenderness - Neurological Exam Neurological Exam: Alert, Awake, Oriented x3 - Skin Skin Exam: Normal Color, Warm Assessment and Plan - Assessment and Plan (Free Text) Assessment: > EKG: AFIB, no acute ischemic changes > DC ruled out > ECHO directly viewsed by me: AFIB, normal LVEF, LVH, Markedly dilated LA, RV dysfunction, dilated IVC, moderate PASP at 42-44mmHg, mild-mod TR, aortic sclerosis. > CXR: effusion right, mild congestion > elevated nt-BNP Imopression Acute on chronic diastolic dysfuntion RV failure Moderate PULM HTN Cor Pulmonale AFIB: chronic HTN: uncontrolled Plan: cont xarelto, add lasix 40mg IVP daily, monitor lytes > Increase coreg to 6.25 BID and titrate > continue aldactone 25 daily > add pracardia 30 > anemia w/u
[2018-05-03] MEDS: NIFEdipine 30 mg ER Tab PO SCH (14:11)
--- NOTE | 2018-05-03 18:40 | CP.PCM.PN ---
Subjective - Date & Time of Evaluation Date of Evaluation: 05/03/18 Time of Evaluation: 10:45 - Subjective Subjective: clinically same Objective - Vital Signs/Intake and Output Vital Signs (last 24 hours): Temp Pulse Resp BP Pulse Ox 97.6 F 107 H 20 144/92 H 100 05/03/18 16:07 05/03/18 16:07 05/03/18 16:07 05/03/18 16:07 05/03/18 16:07 Intake and Output: 05/03/18 05/03/18 06:59 18:59 Intake Total 350 480 Balance 350 480 - Medications Medications: Current Medications Albuterol Sulfate (Albuterol 0.042% Inhal Zulma (1.25mg/3ml) Ud) 1.25 mg INH RQ6 [facility] Last Admin: 05/03/18 08:00 Dose: Not Given Aspirin (Aspirin Chewable) 81 mg PO DAILY [facility] Last Admin: 05/03/18 09:32 Dose: 81 mg Brimonidine Tartrate (Alphagan 0.2% Opht) 0.05 ml OS BID [facility] Last Admin: 05/03/18 09:34 Dose: 1 drop Carvedilol (Coreg) 6.25 mg PO BID [facility] Folic Acid (Folic Acid) 1 mg PO DAILY [facility] Last Admin: 05/03/18 09:32 Dose: 1 mg Furosemide (Lasix) 40 mg IVP Q12 [facility] Last Admin: 05/03/18 09:33 Dose: 40 mg Insulin Aspart (Novolog) 0 [facility] SC [facility]; Protocol Last Admin: 05/03/18 12:51 Dose: Not Given [facility] Nifedipine (Procardia Xl) 30 mg PO DAILY [facility] Last Admin: 05/03/18 14:11 Dose: 30 mg Pantoprazole Sodium (Protonix Ec Tab) 40 mg PO DAILY [facility] Last Admin: 05/03/18 09:32 Dose: 40 mg Potassium Chloride (Klor-Con 10) 10 meq PO DAILY [facility] Last Admin: 05/03/18 09:32 Dose: 10 meq Rivaroxaban (Xarelto) 15 mg PO DAILY [facility] Last Admin: 05/03/18 09:33 Dose: 15 mg Rosuvastatin Calcium (Crestor) 20 mg PO HS [facility] Last Admin: 05/02/18 22:21 Dose: 20 mg Sitagliptin Phosphate (Januvia) 50 mg PO DAILY [facility] Last Admin: 05/03/18 09:32 Dose: 50 mg Spironolactone (Aldactone) 25 mg PO DAILY [facility] Last Admin: 05/03/18 09:32 Dose: 25 mg Tolterodine Tartrate (Detrol) 2 mg PO BID [facility] Last Admin: 05/03/18 09:33 Dose: 2 mg - Labs Labs: 05/01/18 08:47 05/03/18 08:26 - Constitutional Appears: Well - Head Exam Head Exam: ATRAUMATIC, NORMAL INSPECTION, NORMOCEPHALIC - Eye Exam Eye Exam: EOMI, Normal appearance, PERRL Pupil Exam: NORMAL ACCOMODATION, PERRL - ENT Exam ENT Exam: Mucous Membranes Moist, Normal Exam - Neck Exam Neck Exam: Full ROM, Normal Inspection. absent: Lymphadenopathy - Respiratory Exam Respiratory Exam: Decreased Breath Sounds - Cardiovascular Exam Cardiovascular Exam: REGULAR RHYTHM, +S1, +S2 - GI/Abdominal Exam GI & Abdominal Exam: Soft, Diminished Bowel Sounds - Rectal Exam Rectal Exam: Deferred
[2018-05-04] MEDS: Albuterol 0.042% Inhal Sol (1.25 mg/3 mL) UD INH SCH ×3 (01:57→20:07)
[2018-05-04] MEDS: (Novolog) Insulin Aspart, Recombinant 100 u/ml 10 ml vial SC SCH ×4 (07:29→21:59)
[2018-05-04] MEDS: NIFEdipine 30 mg ER Tab PO SCH (11:20)
[2018-05-04] MEDS: Brimonidine 0.2% Opth Sol (5ml) OS SCH ×2 (11:20→17:31)
[2018-05-04] MEDS: Potassium Chloride 10 mEq ER Tab PO SCH (11:21)
[2018-05-04] MEDS: Pantoprazole 40 mg EC Tab PO SCH (11:21)
--- NOTE | 2018-05-04 15:55 | CP.PCM.PN ---
Subjective - Date & Time of Evaluation Date of Evaluation: 05/04/18 Time of Evaluation: 10:30 - Subjective Subjective: clinically same Objective - Vital Signs/Intake and Output Vital Signs (last 24 hours): Temp Pulse Resp BP Pulse Ox 98.1 F 100 H 20 115/55 L 98 05/04/18 07:00 05/04/18 07:00 05/04/18 07:00 05/04/18 11:21 05/04/18 07:00 Intake and Output: 05/04/18 05/04/18 06:59 18:59 Intake Total 780 Balance 780 - Medications Medications: Current Medications Albuterol Sulfate (Albuterol 0.042% Inhal Zulma (1.25mg/3ml) Ud) 1.25 mg INH RQ6 [facility] Last Admin: 05/04/18 07:57 Dose: Not Given Aspirin (Aspirin Chewable) 81 mg PO DAILY [facility] Last Admin: 05/04/18 11:21 Dose: 81 mg Brimonidine Tartrate (Alphagan 0.2% Opht) 0.05 ml OS BID [facility] Last Admin: 05/04/18 11:20 Dose: 1 drop Carvedilol (Coreg) 6.25 mg PO BID [facility] Last Admin: 05/04/18 11:21 Dose: 6.25 mg Folic Acid (Folic Acid) 1 mg PO DAILY [facility] Last Admin: 05/04/18 11:21 Dose: 1 mg Furosemide (Lasix) 40 mg IVP Q12 [facility] Last Admin: 05/04/18 11:21 Dose: 40 mg Insulin Aspart (Novolog) 0 unit SC [facility]; Protocol Last Admin: 05/04/18 13:03 Dose: Not Given [facility] Nifedipine (Procardia Xl) 30 mg PO DAILY [facility] Last Admin: 05/04/18 11:20 Dose: 30 mg Pantoprazole Sodium (Protonix Ec Tab) 40 mg PO DAILY [facility] Last Admin: 05/04/18 11:21 Dose: 40 mg Potassium Chloride (Klor-Con 10) 10 meq PO DAILY [facility] Last Admin: 05/04/18 11:21 Dose: 10 meq Rivaroxaban (Xarelto) 15 mg PO DAILY [facility] Last Admin: 05/04/18 11:23 Dose: 15 mg Rosuvastatin Calcium (Crestor) 20 mg PO HS [facility] Last Admin: 05/03/18 21:35 Dose: 20 mg Sitagliptin Phosphate (Januvia) 50 mg PO DAILY [facility] Last Admin: 05/04/18 11:20 Dose: 50 mg Spironolactone (Aldactone) 25 mg PO DAILY [facility] Last Admin: 05/04/18 11:21 Dose: 25 mg Tolterodine Tartrate (Detrol) 2 mg PO BID [facility] Last Admin: 05/04/18 11:23 Dose: 2 mg - Labs Labs: 05/01/18 08:47 05/03/18 08:26 - Constitutional Appears: Well - Head Exam Head Exam: ATRAUMATIC, NORMAL INSPECTION, NORMOCEPHALIC - Eye Exam Eye Exam: EOMI, Normal appearance, PERRL Pupil Exam: NORMAL ACCOMODATION, PERRL - ENT Exam ENT Exam: Mucous Membranes Moist, Normal Exam - Neck Exam Neck Exam: Full ROM, Normal Inspection. absent: Lymphadenopathy - Respiratory Exam Respiratory Exam: Decreased Breath Sounds - Cardiovascular Exam Cardiovascular Exam: REGULAR RHYTHM, +S1, +S2 - GI/Abdominal Exam GI & Abdominal Exam: Soft, Diminished Bowel Sounds - Rectal Exam Rectal Exam: Deferred
[2018-05-05] MEDS: Albuterol 0.042% Inhal Sol (1.25 mg/3 mL) UD INH SCH ×4 (01:43→20:22)
[2018-05-05] MEDS: (Novolog) Insulin Aspart, Recombinant 100 u/ml 10 ml vial SC SCH ×4 (07:26→22:28)
--- NOTE | 2018-05-05 08:45 | CON ---
DATE: 05/02/2018 Thank you for asking me to see this patient on pulmonary consult. HISTORY OF PRESENT ILLNESS: The patient is a 78-year-old female with past history of asthma and remote smoking, diabetes mellitus, hypertension, arthritis, and hypercholesterolemia as well as obesity. The patient is now admitted with increasing pressure in the chest, shortness of breath, cough with mucoid sputum with some headache. The headache and chest pressure has subsided since admission after she was started on therapy. There has been no fever, no chills, no vomiting, no abdominal pain, no urinary symptoms, no hemoptysis, and no hematemesis. She has general aching and complains of arthritic pain and bilateral ankle swelling. There has been no bowel irregularity. PAST HISTORY: As stated above of asthma, COPD, hypertension, diabetes mellitus, obesity, arthritis and cardiac arrhythmia with atrial fibrillation reported. SOCIAL HISTORY: The patient does not drink alcohol. Has been a remote smoker. ALLERGIES: THERE ARE NO ALLERGIES REPORTED. FAMILY HISTORY: Unremarkable. REVIEW OF SYSTEMS: Systemic review is as reported above in cardiorespiratory, GI, renal, and neurological system as well as musculoskeletal system with joint pains and generalized muscle weakness. PHYSICAL EXAMINATION: GENERAL: She is a Nigerien-speaking lady and the history is obtained through a Nigerien-speaking translator/interpreter who is her relative sitting by her at bedside. The patient is alert, oriented. VITAL SIGNS: Afebrile with blood pressure 140/94, pulse 93, respirations 20, hemoglobin oxygen saturation of 98% on room air. NECK: Supple. There is no lymphadenopathy. HEENT: Unremarkable. HEART: Regular with dropped beats. There is no gallop rhythm. LUNGS: Diminished breath sounds over the lung bases with rhonchi and crackles over the bases. ABDOMEN: Soft. EXTREMITIES: Legs, bilateral pitting leg edema. DTR fair. General muscle weakness, mild. LABORATORY DATA: Blood glucose is 172. White count 2800, hemoglobin 9.5, platelet count 136. CK is 0.38. Troponin less than 0.01. BUN 36 and creatinine 1.2. ProBNP markedly increased over 2700. Chest x-ray shows cardiomegaly and bilateral pulmonary congestion, more so on the right side. There is small pleural effusion, more on the right side than the left. IMPRESSION: 1. Respiratory insufficiency. 2. Hypertensive cardiovascular disease. 3. Congestive heart failure. 4. Exacerbation of chronic obstructive pulmonary disease and asthma. 5. Arthritis. 6. Hypercholesterolemia. 7. Cardiac arrhythmias. 8. Obesity. 9. Diabetes mellitus. 10. Problem with sleep apnea. PLAN: To continue the current medications including bronchodilators, vasodilators, oxygen therapy, further testing, further evaluation and therapy. We will do sputum test and thyroid test and order BiPAP therapy. Suggest control of seizure and diabetes and therapy for cardiac arrhythmias as well as DVT prophylaxis and general care. Steve Magana MD
--- NOTE | 2018-05-05 10:06 | VASCLAB ---
Date of service: 05/02/2018 PROCEDURE: Lower Extremity Venous Duplex Exam. HISTORY: dvt PRIORS: None. TECHNIQUE: Bilateral common femoral, femoral, popliteal and posterior tibial, peroneal and great saphenous veins were evaluated. Flow was assessed with color Doppler, compressibility, assessment of phasic flow and augmentation response. Report prepared by JORGE Phelan, RVT FINDINGS: RIGHT: 1. Common Femoral Vein: 1.1. Compressibility - Fully compressible: Thrombus - None : Flow - Phasic: Augmentation -Normal: Reflux - None. 2. Femoral Vein: 2.1. Compressibility - Fully compressible: Thrombus - None : Flow - Phasic: Augmentation -Normal: Reflux - None. 3. Popliteal Vein: 3.1. Compressibility - Fully compressible: Thrombus - None : Flow - Phasic: Augmentation -Normal: Reflux - None. 4. Posterior Tibial Vein: 4.1. Compressibility - Fully compressible: Thrombus - None: Flow - Phasic: Augmentation -Normal: Reflux - None. 5. Peroneal Vein: 5.1. Compressibility - : Thrombus - : Flow - : Augmentation -: Reflux - . 6. Great Saphenous Vein: 6.1. Compressibility - Fully compressible: Thrombus - None: Flow - Phasic: Augmentation - Normal: Reflux - None. LEFT: 1. Common Femoral Vein: 1.1. Compressibility - Fully compressible: Thrombus - None: Flow - Phasic: Augmentation -Normal: Reflux - None. 2. Femoral Vein: 2.1. Compressibility - Fully compressible: Thrombus - None: Flow - Phasic: Augmentation -Normal: Reflux - None. 3. Popliteal Vein: 3.1. Compressibility - Fully compressible: Thrombus - None : Flow - Phasic: Augmentation -Normal: Reflux - None. 4. Posterior Tibial Vein: 4.1. Compressibility - : Thrombus - : Flow - : Augmentation -: Reflux - . 5. Peroneal Vein: 5.1. Compressibility - : Thrombus - : Flow - : Augmentation -: Reflux - . 6. Great Saphenous Vein: 6.1. Compressibility - Fully compressible: Thrombus - None: Flow - Phasic: Augmentation - Normal: Reflux - None. OTHER FINDINGS: Right: Due to swelling in the calf, the right peroneal vein was not visualized. Left: Due to swelling in the calf, the left peroneal and posterior tibial vein were not visualized. IMPRESSION: Right: No evidence of deep or superficial vein thrombosis of the right lower extremity. Normal valve function noted of the right side. Left: No evidence of deep or superficial vein thrombosis of the left lower extremity. Normal valve function noted of the left side.
[2018-05-05] MEDS: Pantoprazole 40 mg EC Tab PO SCH (10:32)
[2018-05-05] MEDS: Potassium Chloride 10 mEq ER Tab PO SCH (10:32)
[2018-05-05] MEDS: Brimonidine 0.2% Opth Sol (5ml) OS SCH ×2 (10:32→17:38)
[2018-05-05] MEDS: NIFEdipine 30 mg ER Tab PO SCH (10:32)
--- NOTE | 2018-05-05 15:46 | CP.PCM.PN ---
Subjective - Date & Time of Evaluation Date of Evaluation: 05/05/18 Time of Evaluation: 15:44 - Subjective Subjective: No new compliants no CP Obese + MORALES Objective - Vital Signs/Intake and Output Vital Signs (last 24 hours): Temp Pulse Resp BP Pulse Ox 97.4 F L 102 H 20 134/73 95 05/05/18 10:33 05/05/18 10:33 05/05/18 10:33 05/05/18 10:33 05/05/18 10:33 Intake and Output: 05/05/18 05/05/18 06:59 18:59 Intake Total 640 Balance 640 - Medications Medications: Current Medications Acetaminophen (Tylenol 325mg Tab) 650 mg PO Q6 PRN PRN Reason: Fever >100.4 F Last Admin: 05/05/18 10:31 Dose: 650 mg Albuterol Sulfate (Albuterol 0.042% Inhal Zulma (1.25mg/3ml) Ud) 1.25 mg INH RQ6 [facility] Last Admin: 05/05/18 13:55 Dose: 1.25 mg Aspirin (Aspirin Chewable) 81 mg PO DAILY [facility] Last Admin: 05/05/18 10:32 Dose: 81 mg Brimonidine Tartrate (Alphagan 0.2% Opht) 0.05 ml OS BID [facility] Last Admin: 05/05/18 10:32 Dose: 1 drop Carvedilol (Coreg) 6.25 mg PO BID [facility] Last Admin: 05/05/18 10:32 Dose: 6.25 mg Folic Acid (Folic Acid) 1 mg PO DAILY [facility] Last Admin: 05/05/18 10:32 Dose: 1 mg Furosemide (Lasix) 40 mg IVP Q12 [facility] Last Admin: 05/05/18 10:32 Dose: 40 mg Insulin Aspart (Novolog) 0 unit SC [facility]; Protocol Last Admin: 05/05/18 11:50 Dose: Not Given [facility] Nifedipine (Procardia Xl) 30 mg PO DAILY [facility] Last Admin: 05/05/18 10:32 Dose: 30 mg Pantoprazole Sodium (Protonix Ec Tab) 40 mg PO DAILY [facility] Last Admin: 05/05/18 10:32 Dose: 40 mg Potassium Chloride (Klor-Con 10) 10 meq PO DAILY [facility] Last Admin: 05/05/18 10:32 Dose: 10 meq Rivaroxaban (Xarelto) 15 mg PO DAILY [facility] Last Admin: 05/05/18 10:32 Dose: 15 mg Rosuvastatin Calcium (Crestor) 20 mg PO HS [facility] Last Admin: 05/04/18 21:05 Dose: 20 mg Sitagliptin Phosphate (Januvia) 50 mg PO DAILY [facility] Last Admin: 05/05/18 10:32 Dose: 50 mg Spironolactone (Aldactone) 25 mg PO DAILY [facility] Last Admin: 05/05/18 10:32 Dose: 25 mg Tolterodine Tartrate (Detrol) 2 mg PO BID [facility] Last Admin: 05/05/18 10:32 Dose: 2 mg - Labs Labs: 05/01/18 08:47 05/03/18 08:26 - Constitutional Appears: No Acute Distress - Head Exam Head Exam: ATRAUMATIC, NORMAL INSPECTION, NORMOCEPHALIC - Eye Exam Eye Exam: EOMI, Normal appearance. absent: Scleral icterus - ENT Exam ENT Exam: Mucous Membranes Moist - Neck Exam Neck Exam: Full ROM. absent: Thyromegaly - Respiratory Exam Respiratory Exam: Clear to Ausculation Bilateral. absent: Rales, Rhonchi, Wheezes - Cardiovascular Exam Cardiovascular Exam: Irregular Rhythm, +S1, +S2. absent: Murmur - GI/Abdominal Exam GI & Abdominal Exam: Soft. absent: Tenderness - Extremities Exam Extremities Exam: Pedal Edema. absent: Calf Tenderness - Neurological Exam Neurological Exam: Alert, Awake, Oriented x3 - Psychiatric Exam Psychiatric exam: Normal Affect, Normal Mood - Skin Skin Exam: Normal Color, Warm Assessment and Plan - Assessment and Plan (Free Text) Assessment: > EKG: AFIB, no acute ischemic changes > UT ruled out > ECHO directly viewsed by me: AFIB, normal LVEF, LVH, Markedly dilated LA, RV dysfunction, dilated IVC, moderate PASP at 42-44mmHg, mild-mod TR, aortic scle rosis. > CXR: effusion right, mild congestion > elevated nt-BNP Imopression Acute on chronic diastolic dysfuntion RV failure Moderate PULM HTN Cor Pulmonale AFIB: chronic HTN: uncontrolled Plan: cont xarelto, add lasix 40mg IVP daily, monitor lytes > Increase coreg to 12.5 BID and titrate > continue aldactone 25 daily > added pracardia 30 > anemia w/u
--- NOTE | 2018-05-05 20:29 | CP.PCM.PN ---
Subjective - Date & Time of Evaluation Date of Evaluation: 05/05/18 Time of Evaluation: 09:15 - Subjective Subjective: clinically same Objective - Vital Signs/Intake and Output Vital Signs (last 24 hours): Temp Pulse Resp BP Pulse Ox 98.0 F 93 H 20 114/73 98 05/05/18 16:00 05/05/18 16:00 05/05/18 16:00 05/05/18 16:00 05/05/18 16:00 - Medications Medications: Current Medications Acetaminophen (Tylenol 325mg Tab) 650 mg PO Q6 PRN PRN Reason: Fever >100.4 F Last Admin: 05/05/18 10:31 Dose: 650 mg Albuterol Sulfate (Albuterol 0.042% Inhal Zulma (1.25mg/3ml) Ud) 1.25 mg INH RQ6 [facility] Last Admin: 05/05/18 20:22 Dose: 1.25 mg Aspirin (Aspirin Chewable) 81 mg PO DAILY [facility] Last Admin: 05/05/18 10:32 Dose: 81 mg Brimonidine Tartrate (Alphagan 0.2% Opht) 0.05 ml OS BID [facility] Last Admin: 05/05/18 17:38 Dose: 1 drop Carvedilol (Coreg) 6.25 mg PO BID [facility] Last Admin: 05/05/18 17:38 Dose: 6.25 mg Folic Acid (Folic Acid) 1 mg PO DAILY [facility] Last Admin: 05/05/18 10:32 Dose: 1 mg Furosemide (Lasix) 40 mg IVP Q12 [facility] Last Admin: 05/05/18 10:32 Dose: 40 mg Insulin Aspart (Novolog) 0 unit SC [facility]; Protocol Last Admin: 05/05/18 17:19 Dose: Not Given [facility]ifedipine (Procardia Xl) 30 mg PO DAILY [facility] Last Admin: 05/05/18 10:32 Dose: 30 mg Pantoprazole Sodium (Protonix Ec Tab) 40 mg PO DAILY [facility] Last Admin: 05/05/18 10:32 Dose: 40 mg Potassium Chloride (Klor-Con 10) 10 meq PO DAILY [facility] Last Admin: 05/05/18 10:32 Dose: 10 meq Rivaroxaban (Xarelto) 15 mg PO DAILY [facility] Last Admin: 05/05/18 10:32 Dose: 15 mg Rosuvastatin Calcium (Crestor) 20 mg PO HS [facility] Last Admin: 05/04/18 21:05 Dose: 20 mg Sitagliptin Phosphate (Januvia) 50 mg PO DAILY [facility] Last Admin: 05/05/18 10:32 Dose: 50 mg Spironolactone (Aldactone) 25 mg PO DAILY [facility] Last Admin: 05/05/18 10:32 Dose: 25 mg Tolterodine Tartrate (Detrol) 2 mg PO BID [facility] Last Admin: 05/05/18 17:38 Dose: 2 mg - Labs Labs: 05/01/18 08:47 05/03/18 08:26 - Constitutional Appears: Well - Head Exam Head Exam: ATRAUMATIC, NORMAL INSPECTION, NORMOCEPHALIC - Eye Exam Eye Exam: EOMI, Normal appearance, PERRL Pupil Exam: NORMAL ACCOMODATION, PERRL - ENT Exam ENT Exam: Mucous Membranes Moist, Normal Exam - Neck Exam Neck Exam: Full ROM, Normal Inspection. absent: Lymphadenopathy - Respiratory Exam Respiratory Exam: Decreased Breath Sounds - Cardiovascular Exam Cardiovascular Exam: REGULAR RHYTHM, +S1, +S2 - GI/Abdominal Exam GI & Abdominal Exam: Soft, Diminished Bowel Sounds - Rectal Exam Rectal Exam: Deferred
[2018-05-06] MEDS: Albuterol 0.042% Inhal Sol (1.25 mg/3 mL) UD INH SCH ×4 (01:54→19:49)
--- NOTE | 2018-05-06 06:29 | PN ---
DATE: 05/05/2018 SUBJECTIVE: The patient is in bed with her family and the rest by her bedside. PHYSICAL EXAMINATION: GENERAL: The patient is alert, oriented. VITAL SIGNS: Afebrile, blood pressure 134/72, pulse 102 per minute, respirations 20, hemoglobin-oxygen saturation of 95% on room air. HEART: There is no gallop rhythm. Heart is regular. LUNGS: Diminished breath sounds. Rhonchi decreased. ABDOMEN: Soft. EXTREMITIES: Legs, bilateral erythema present. The patient is seen by silverware assembler. LABORATORY DATA: ABG on 32% oxygen showed a pH of 7.44, PCO2 48, PO2 138, bicarb 41. Hemoglobin-oxygen saturation of 96%. Serum sodium is 139, potassium 4.3, BUN 24, creatinine 1.4, random glucose 104, calcium 9.3. IMPRESSION: Respiratory insufficiency, hypertensive cardiovascular disease, arthritis, hypercholesterolemia, history of asthma and chronic obstructive pulmonary disease, diabetes mellitus. PLAN: To continue with current medications including bronchodilators and vasodilators and start regular incentive spirometry to increase inspiratory effort frequently. Steve Magana MD
[2018-05-06] MEDS: (Novolog) Insulin Aspart, Recombinant 100 u/ml 10 ml vial SC SCH ×4 (08:19→21:59)
--- NOTE | 2018-05-06 10:22 | CP.PCM.PN ---
Subjective - Date & Time of Evaluation Date of Evaluation: 05/06/18 Time of Evaluation: 10:22 - Subjective Subjective: Events reviewed Objective - Vital Signs/Intake and Output Vital Signs (last 24 hours): Temp Pulse Resp BP Pulse Ox 98.4 F 70 20 118/76 97 05/06/18 07:05 05/06/18 07:05 05/06/18 07:05 05/06/18 07:05 05/06/18 07:05 Intake and Output: 05/06/18 05/06/18 06:59 18:59 Intake Total 480 Balance 480 - Medications Medications: Current Medications Acetaminophen (Tylenol 325mg Tab) 650 mg PO Q6 PRN PRN Reason: Fever >100.4 F Last Admin: 05/05/18 10:31 Dose: 650 mg Albuterol Sulfate (Albuterol 0.042% Inhal Zulma (1.25mg/3ml) Ud) 1.25 mg INH RQ6 [facility] Last Admin: 05/06/18 09:32 Dose: 1.25 mg Aspirin (Aspirin Chewable) 81 mg PO DAILY [facility] Last Admin: 05/05/18 10:32 Dose: 81 mg Brimonidine Tartrate (Alphagan 0.2% Opht) 0.05 ml OS BID [facility] Last Admin: 05/05/18 17:38 Dose: 1 drop Carvedilol (Coreg) 6.25 mg PO BID [facility] Last Admin: 05/05/18 17:38 Dose: 6.25 mg Folic Acid (Folic Acid) 1 mg PO DAILY [facility] Last Admin: 05/05/18 10:32 Dose: 1 mg Furosemide (Lasix) 40 mg IVP Q12 [facility] Last Admin: 05/05/18 21:18 Dose: 40 mg Insulin Aspart (Novolog) 0 unit SC [facility]; Protocol Last Admin: 05/06/18 08:19 Dose: Not Given [facility] ([facility]) [facility] Nifedipine (Procardia Xl) 30 mg PO DAILY [facility] Last Admin: 05/05/18 10:32 Dose: 30 mg Pantoprazole Sodium (Protonix Ec Tab) 40 mg PO DAILY [facility] Last Admin: 05/05/18 10:32 Dose: 40 mg Potassium Chloride (Klor-Con 10) 10 meq PO DAILY [facility] Last Admin: 05/05/18 10:32 Dose: 10 meq Rivaroxaban (Xarelto) 15 mg PO DAILY [facility] Last Admin: 05/05/18 10:32 Dose: 15 mg Rosuvastatin Calcium (Crestor) 20 mg PO HS [facility] Last Admin: 05/05/18 21:18 Dose: 20 mg Sitagliptin Phosphate (Januvia) 50 mg PO DAILY [facility] Last Admin: 05/05/18 10:32 Dose: 50 mg Spironolactone (Aldactone) 25 mg PO DAILY [facility] Last Admin: 05/05/18 10:32 Dose: 25 mg Tolterodine Tartrate (Detrol) 2 mg PO BID [facility] Last Admin: 05/05/18 17:38 Dose: 2 mg - Labs Labs: 05/01/18 08:47 05/03/18 08:26 Assessment and Plan - Assessment and Plan (Free Text) Assessment: - Constitutional Appears: No Acute Distress - Head Exam Head Exam: ATRAUMATIC, NORMAL INSPECTION, NORMOCEPHALIC - Eye Exam Eye Exam: EOMI, Normal appearance. absent: Scleral icterus - ENT Exam ENT Exam: Mucous Membranes Moist - Neck Exam Neck Exam: Full ROM. absent: Thyromegaly - Respiratory Exam Respiratory Exam: Clear to Ausculation Bilateral. absent: Rales, Rhonchi, Wheezes - Cardiovascular Exam Cardiovascular Exam: Irregular Rhythm, +S1, +S2. absent: Murmur - GI/Abdominal Exam GI & Abdominal Exam: Soft. absent: Tenderness - Extremities Exam Extremities Exam: Pedal Edema. absent: Calf Tenderness - Neurological Exam Neurological Exam: Alert, Awake, Oriented x3 - Psychiatric Exam Psychiatric exam: Normal Affect, Normal Mood - Skin Skin Exam: Normal Color, Warm Assessment and Plan - Assessment and Plan (Free Text) Assessment: > EKG: AFIB, no acute ischemic changes > [place] ruled out > ECHO directly viewsed by me: AFIB, normal LVEF, LVH, Markedly dilated LA, RV dysfunction, dilated IVC, moderate PASP at 42-44mmHg, mild-mod TR, aortic sclerosis. > CXR: effusion right, mild congestion > elevated nt-BNP Impression Acute on chronic diastolic dysfunction RV failure Moderate PULM HTN Cor Pulmonale AFIB: chronic HTN: uncontrolled Plan: cont xarelto, add lasix 40mg IVP daily, monitor lytes > Continue coreg to 12.5 BID and titrate > continue aldactone 25 daily > added pracardia 30 > anemia w/u Will attempt at rhythm control in the AM with LEEANN and cardioversion, please keep NPO after midnight
[2018-05-06] MEDS: Brimonidine 0.2% Opth Sol (5ml) OS SCH ×2 (10:42→18:10)
[2018-05-06] MEDS: NIFEdipine 30 mg ER Tab PO SCH (10:54)
[2018-05-06] MEDS: Pantoprazole 40 mg EC Tab PO SCH (10:55)
[2018-05-06] MEDS: Potassium Chloride 10 mEq ER Tab PO SCH (10:55)
[2018-05-06 11:33] LABS: BASO % 0.9 % (0.0-2.0); EOS # 0.1 K/uL (0.0-0.7); EOS % 2.9 % (0.0-4.0); HEMOGLOBIN 9.5 g/dL (11.0-16.0); LYMPH # 0.6 K/uL (1.0-4.3); LYMPH % 13.9 % (20.0-40.0); MEAN CELL VOLUME 90.3 fL (81.0-99.0); MEAN CORPUSCULAR HEMOGLOBIN 28.9 pg (27.0-31.0); MEAN PLATELET VOLUME 10.1 fL (7.2-11.7); MONO # 0.6 K/uL (0.0-0.8); MONO % 14.1 % (0.0-10.0); NEUT # 3.1 K/uL (1.8-7.0); NEUT % 68.2 % (50.0-75.0); RBC 3.27 Mil/uL (3.80-5.20); RED CELL DISTRIBUTION WIDTH 16.5 % (11.5-14.5); WHITE BLOOD COUNT 4.5 K/uL (4.8-10.8)
[2018-05-06 12:05] LABS: CALCIUM 9.3 mg/dl (8.6-10.4)
--- NOTE | 2018-05-06 18:07 | CP.PCM.PN ---
Subjective - Date & Time of Evaluation Date of Evaluation: 05/06/18 Time of Evaluation: 09:15 - Subjective Subjective: clinically same Objective - Vital Signs/Intake and Output Vital Signs (last 24 hours): Temp Pulse Resp BP Pulse Ox 97.4 F L 67 20 105/65 99 05/06/18 15:24 05/06/18 15:24 05/06/18 15:24 05/06/18 15:24 05/06/18 15:24 Intake and Output: 05/06/18 05/06/18 06:59 18:59 Intake Total 480 450 Balance 480 450 - Medications Medications: Current Medications Acetaminophen (Tylenol 325mg Tab) 650 mg PO Q6 PRN PRN Reason: Fever >100.4 F Last Admin: 05/05/18 10:31 Dose: 650 mg Albuterol Sulfate (Albuterol 0.042% Inhal Zulma (1.25mg/3ml) Ud) 1.25 mg INH RQ6 [facility] Last Admin: 05/06/18 13:29 Dose: 1.25 mg Aspirin (Aspirin Chewable) 81 mg PO DAILY [facility] Last Admin: 05/06/18 10:55 Dose: 81 mg Brimonidine Tartrate (Alphagan 0.2% Opht) 0.05 ml OS BID [facility] Last Admin: 05/06/18 10:42 Dose: Not Given Carvedilol (Coreg) 6.25 mg PO BID [facility] Last Admin: 05/06/18 10:54 Dose: 6.25 mg Folic Acid (Folic Acid) 1 mg PO DAILY [facility] Last Admin: 05/06/18 10:54 Dose: 1 mg Furosemide (Lasix) 40 mg IVP Q12 [facility] Last Admin: 05/06/18 10:55 Dose: 40 mg Insulin Aspart (Novolog) 0 unit SC [facility]; Protocol Last Admin: 05/06/18 17:16 Dose: Not Given [facility] Nifedipine (Procardia Xl) 30 mg PO DAILY [facility] Last Admin: 05/06/18 10:54 Dose: 30 mg Pantoprazole Sodium (Protonix Ec Tab) 40 mg PO DAILY [facility] Last Admin: 05/06/18 10:55 Dose: 40 mg Rivaroxaban (Xarelto) 15 mg PO DAILY [facility] Last Admin: 05/06/18 10:55 Dose: 15 mg Rosuvastatin Calcium (Crestor) 20 mg PO HS [facility] Last Admin: 05/05/18 21:18 Dose: 20 mg Sitagliptin Phosphate (Januvia) 50 mg PO DAILY [facility] Last Admin: 05/06/18 10:54 Dose: 50 mg Spironolactone (Aldactone) 25 mg PO DAILY [facility] Last Admin: 05/06/18 10:55 Dose: 25 mg Tolterodine Tartrate (Detrol) 2 mg PO BID [facility] Last Admin: 05/06/18 10:54 Dose: 2 mg - Labs Labs: 05/06/18 11:25 05/06/18 11:25 - Constitutional Appears: Well - Head Exam Head Exam: ATRAUMATIC, NORMAL INSPECTION, NORMOCEPHALIC - Eye Exam Eye Exam: EOMI, Normal appearance, PERRL Pupil Exam: NORMAL ACCOMODATION, PERRL - ENT Exam ENT Exam: Mucous Membranes Moist, Normal Exam - Neck Exam Neck Exam: Full ROM, Normal Inspection. absent: Lymphadenopathy - Respiratory Exam Respiratory Exam: Decreased Breath Sounds - Cardiovascular Exam Cardiovascular Exam: REGULAR RHYTHM, +S1, +S2 - GI/Abdominal Exam GI & Abdominal Exam: Soft, Diminished Bowel Sounds - Rectal Exam Rectal Exam: Deferred
[2018-05-07] MEDS: Albuterol 0.042% Inhal Sol (1.25 mg/3 mL) UD INH SCH ×3 (01:22→13:08)
[2018-05-07] MEDS: (Novolog) Insulin Aspart, Recombinant 100 u/ml 10 ml vial SC SCH ×3 (08:11→21:03)
--- NOTE | 2018-05-07 10:55 | PN ---
DATE: 05/07/2018 PHYSICAL EXAMINATION: GENERAL: The patient is alert, oriented, afebrile. VITAL SIGNS: Blood pressure 110/62, pulse 80, respirations 20, and hemoglobin oxygen saturation of 97% on room air. HEART: Regular. No gallop or rub. LUNGS: Diminished breath sounds over the lung bases. The rhonchi decreased compared to before. ABDOMEN: Soft. EXTREMITIES: Legs edema subsided. LABORATORY DATA: Her white count is 12.5, 4500, hemoglobin 9.5, and platelet count is 136,000. Serum sodium is 137, potassium 5.1, chloride 95, BUN is 17, creatinine 1.9, blood sugar 163. IMPRESSION: Respiratory insufficiency, hypertensive cardiovascular disease, congestive heart failure, arthritis, obesity, and sleep apnea syndrome. PLAN: To continue the current medications including bronchodilators and vasodilators, and incentive spirometry and follow up with the consultants. Steve Magana MD
[2018-05-07] MEDS: Brimonidine 0.2% Opth Sol (5ml) OS SCH ×2 (11:39→17:16)
[2018-05-07] MEDS: NIFEdipine 30 mg ER Tab PO SCH (11:40)
[2018-05-07] MEDS: Pantoprazole 40 mg EC Tab PO SCH (11:40)
[2018-05-07] MEDS ORDERED: Lidocaine 4% (Laryng-O-Jet) Kit MM ONE (12:07)
[2018-05-07] MEDS ORDERED: Midazolam 2 MG/2 ML VIAL ONE ×2 (12:20→12:28)
[2018-05-07] MEDS ORDERED: Propofol 10 mg/ml Inj (20 ML) ONE (12:21)
[2018-05-07] MEDS ORDERED: Lidocaine 2% MPF (5 ml) Inj ONE (12:23)
[2018-05-07] MEDS ORDERED: Etomidate 20 mg/10ml Inj IV ONE (12:23)
[2018-05-07] MEDS ORDERED: Phenylephrine 10 mg/ml Inj ONE (12:34)
[2018-05-07] MEDS ORDERED: ePHEDrine 50 mg/ml Inj ONE (12:34)
--- NOTE | 2018-05-07 12:54 | CP.PCM.PN ---
Subjective - Date & Time of Evaluation Date of Evaluation: 05/07/18 Time of Evaluation: 11:30 - Subjective Subjective: Events reviewed Objective - Vital Signs/Intake and Output Vital Signs (last 24 hours): Temp Pulse Resp BP Pulse Ox 97.3 F L 63 20 119/66 96 05/07/18 07:00 05/07/18 07:00 05/07/18 07:00 05/07/18 07:00 05/07/18 07:00 Intake and Output: 05/07/18 05/07/18 06:59 18:59 Intake Total 350 Balance 350 - Medications Medications: Current Medications Acetaminophen (Tylenol 325mg Tab) 650 mg PO Q6 PRN PRN Reason: Fever >100.4 F Last Admin: 05/05/18 10:31 Dose: 650 mg Albuterol Sulfate (Albuterol 0.042% Inhal Zulma (1.25mg/3ml) Ud) 1.25 mg INH RQ6 [facility] Last Admin: 05/07/18 08:14 Dose: 1.25 mg Aspirin (Aspirin Chewable) 81 mg PO DAILY [facility] Last Admin: 05/07/18 11:39 Dose: Not Given Brimonidine Tartrate (Alphagan 0.2% Opht) 0.05 ml OS BID [facility] Last Admin: 05/07/18 11:39 Dose: Not Given Carvedilol (Coreg) 6.25 mg PO BID [facility] Last Admin: 05/07/18 11:39 Dose: Not Given Folic Acid (Folic Acid) 1 mg PO DAILY [facility] Last Admin: 05/07/18 11:39 Dose: Not Given Furosemide (Lasix) 40 mg IVP Q12 [facility] Last Admin: 05/06/18 22:41 Dose: 40 mg Insulin Aspart (Novolog) 0 unit SC [facility]; Protocol Last Admin: 05/07/18 08:11 Dose: Not Given Met[facility] (Gluc[facility]) [facility] Nifedipine (Procardia Xl) 30 mg PO DAILY [facility] Last Admin: 05/07/18 11:40 Dose: Not Given Pantoprazole Sodium (Protonix Ec Tab) 40 mg PO DAILY [facility] Last Admin: 05/07/18 11:40 Dose: Not Given Rivaroxaban (Xarelto) 15 mg PO DAILY [facility] Last Admin: 05/07/18 11:40 Dose: Not Given Rosuvastatin Calcium (Crestor) 20 mg PO HS [facility] Last Admin: 05/06/18 22:41 Dose: 20 mg Sitagliptin Phosphate (Januvia) 50 mg PO DAILY [facility] Last Admin: 05/07/18 11:40 Dose: Not Given Spironolactone (Aldactone) 25 mg PO DAILY [facility] Last Admin: 05/07/18 11:39 Dose: Not Given Tolterodine Tartrate (Detrol) 2 mg PO BID [facility] Last Admin: 05/07/18 11:39 Dose: Not Given - Labs Labs: 05/06/18 11:25 05/06/18 11:25 Assessment and Plan - Assessment and Plan (Free Text) Assessment: - Constitutional Appears: No Acute Distress - Head Exam Head Exam: ATRAUMATIC, NORMAL INSPECTION, NORMOCEPHALIC - Eye Exam Eye Exam: EOMI, Normal appearance. absent: Scleral icterus - ENT Exam ENT Exam: Mucous Membranes Moist - Neck Exam Neck Exam: Full ROM. absent: Thyromegaly - Respiratory Exam Respiratory Exam: Clear to Ausculation Bilateral. absent: Rales, Rhonchi, Wheezes - Cardiovascular Exam Cardiovascular Exam: Irregular Rhythm, +S1, +S2. absent: Murmur - GI/Abdominal Exam GI & Abdominal Exam: Soft. absent: Tenderness - Extremities Exam Extremities Exam: Pedal Edema. absent: Calf Tenderness - Neurological Exam Neurological Exam: Alert, Awake, Oriented x3 - Psychiatric Exam Psychiatric exam: Normal Affect, Normal Mood - Skin Skin Exam: Normal Color, Warm Assessment and Plan - Assessment and Plan (Free Text) Assessment: > EKG: AFIB, no acute ischemic changes > [place] ruled out > ECHO directly viewsed by me: AFIB, normal LVEF, LVH, Markedly dilated LA, RV dysfunction, dilated IVC, moderate PASP at 42-44mmHg, mild-mod TR, aortic sclerosis. > CXR: effusion right, mild congestion > elevated nt-BNP Impression Acute on chronic diastolic dysfunction RV failure Moderate PULM HTN Cor Pulmonale AFIB: chronic HTN: uncontrolled Plan: cont xarelto, add lasix 40mg IVP daily, monitor lytes > Continue coreg to 12.5 BID and titrate > continue aldactone 25 daily > added pracardia 30 > anemia w/u Will attempt at rhythm control in the LEEANN today
--- NOTE | 2018-05-07 12:55 | CP.PCM.PN ---
Subjective - Date & Time of Evaluation Date of Evaluation: 05/07/18 Time of Evaluation: 12:54 - Subjective Subjective: Prelim LEEANN LAE Intra atrial septal aneurysm normal bubble study Normal valves No endocarditis EF 65% calcified right coronary cusp s/p cardioversionto NSR with 120J of synchronized energy Follow up official report Objective - Vital Signs/Intake and Output Vital Signs (last 24 hours): Temp Pulse Resp BP Pulse Ox 97.3 F L 63 20 119/66 96 05/07/18 07:00 05/07/18 07:00 05/07/18 07:00 05/07/18 07:00 05/07/18 07:00 Intake and Output: 05/07/18 05/07/18 06:59 18:59 Intake Total 350 Balance 350 - Medications Medications: Current Medications Acetaminophen (Tylenol 325mg Tab) 650 mg PO Q6 PRN PRN Reason: Fever >100.4 F Last Admin: 05/05/18 10:31 Dose: 650 mg Albuterol Sulfate (Albuterol 0.042% Inhal Zulma (1.25mg/3ml) Ud) 1.25 mg INH RQ6 [facility] Last Admin: 05/07/18 08:14 Dose: 1.25 mg Aspirin (Aspirin Chewable) 81 mg PO DAILY [facility] Last Admin: 05/07/18 11:39 Dose: Not Given Brimonidine Tartrate (Alphagan 0.2% Opht) 0.05 ml OS BID [facility] Last Admin: 05/07/18 11:39 Dose: Not Given Carvedilol (Coreg) 6.25 mg PO BID [facility] Last Admin: 05/07/18 11:39 Dose: Not Given Folic Acid (Folic Acid) 1 mg PO DAILY [facility] Last Admin: 05/07/18 11:39 Dose: Not Given Furosemide (Lasix) 40 mg IVP Q12 [facility] Last Admin: 05/06/18 22:41 Dose: 40 mg Insulin Aspart (Novolog) 0 unit SC [facility]; Protocol Last Admin: 05/07/18 08:11 Dose: Not Given [facility] ([facility]) [facility] Nifedipine (Procardia Xl) 30 mg PO DAILY [facility] Last Admin: 05/07/18 11:40 Dose: Not Given Pantoprazole Sodium (Protonix Ec Tab) 40 mg PO DAILY [facility] Last Admin: 05/07/18 11:40 Dose: Not Given Rivaroxaban (Xarelto) 15 mg PO DAILY [facility] Last Admin: 05/07/18 11:40 Dose: Not Given Rosuvastatin Calcium (Crestor) 20 mg PO HS [facility] Last Admin: 05/06/18 22:41 Dose: 20 mg Sitagliptin Phosphate (Januvia) 50 mg PO DAILY [facility] Last Admin: 05/07/18 11:40 Dose: Not Given Spironolactone (Aldactone) 25 mg PO DAILY [facility] Last Admin: 05/07/18 11:39 Dose: Not Given Tolterodine Tartrate (Detrol) 2 mg PO BID [facility] Last Admin: 05/07/18 11:39 Dose: Not Given - Labs Labs: 05/06/18 11:25 05/06/18 11:25
--- NOTE | 2018-05-07 19:15 | CP.PCM.PN ---
Subjective - Date & Time of Evaluation Date of Evaluation: 05/07/18 Time of Evaluation: 09:15 - Subjective Subjective: clinically same Objective - Vital Signs/Intake and Output Vital Signs (last 24 hours): Temp Pulse Resp BP Pulse Ox 98.2 F 66 20 116/69 99 05/07/18 15:33 05/07/18 15:33 05/07/18 15:33 05/07/18 15:33 05/07/18 15:33 - Medications Medications: Current Medications Acetaminophen (Tylenol 325mg Tab) 650 mg PO Q6 PRN PRN Reason: Fever >100.4 F Last Admin: 05/05/18 10:31 Dose: 650 mg Aspirin (Aspirin Chewable) 81 mg PO DAILY [facility] Last Admin: 05/07/18 11:39 Dose: Not Given Brimonidine Tartrate (Alphagan 0.2% Opht) 0.05 ml OS BID [facility] Last Admin: 05/07/18 17:16 Dose: 1 drop Carvedilol (Coreg) 6.25 mg PO BID [facility] Last Admin: 05/07/18 17:16 Dose: 6.25 mg Folic Acid (Folic Acid) 1 mg PO DAILY [facility] Last Admin: 05/07/18 11:39 Dose: Not Given Furosemide (Lasix) 40 mg IVP Q12 [facility] Last Admin: 05/06/18 22:41 Dose: 40 mg Insulin Aspart (Novolog) 0 unit SC [facility]; Protocol Last Admin: 05/07/18 17:17 Dose: Not Given Metformin HCl (Glucophage) 500 mg PO BIDCC [facility] Nifedipine (Procardia Xl) 30 mg PO DAILY [facility] Last Admin: 05/07/18 11:40 Dose: Not Given Pantoprazole Sodium (Protonix Ec Tab) 40 mg PO DAILY [facility] Last Admin: 05/07/18 11:40 Dose: Not Given Rivaroxaban (Xarelto) 15 mg PO DAILY [facility] Last Admin: 05/07/18 11:40 Dose: Not Given Rosuvastatin Calcium (Crestor) 10 mg PO HS [facility] Sitagliptin Phosphate (Januvia) 25 mg PO DAILY [facility] Spironolactone (Aldactone) 25 mg PO DAILY [facility] Last Admin: 05/07/18 11:39 Dose: Not Given Tolterodine Tartrate (Detrol) 2 mg PO BID [facility] Last Admin: 05/07/18 17:16 Dose: 2 mg - Labs Labs: 03/19/19 11:25 05/06/18 11:25 - Constitutional Appears: Well - Head Exam Head Exam: ATRAUMATIC, NORMAL INSPECTION, NORMOCEPHALIC - Eye Exam Eye Exam: EOMI, Normal appearance, PERRL Pupil Exam: NORMAL ACCOMODATION, PERRL - ENT Exam ENT Exam: Mucous Membranes Moist, Normal Exam - Neck Exam Neck Exam: Full ROM, Normal Inspection. absent: Lymphadenopathy - Respiratory Exam Respiratory Exam: Decreased Breath Sounds - Cardiovascular Exam Cardiovascular Exam: REGULAR RHYTHM, +S1, +S2 - GI/Abdominal Exam GI & Abdominal Exam: Soft, Diminished Bowel Sounds - Rectal Exam Rectal Exam: Deferred
--- NOTE | 2018-05-08 06:16 | PN ---
DATE: 05/07/2018 SUBJECTIVE: The patient is alert, oriented, afebrile. Apparent shortness of breath . There is no vomiting. Cough is . There is no hemoptysis. PHYSICAL EXAMINATION: VITAL SIGNS: Blood pressure 118/66, pulse 64, respirations 22, and hemoglobin oxygen saturation 96% on room air. CARDIOPULMONARY: Her heart is regular. No gallop rhythm. LUNGS: Diminished breath sounds over lung bases, no crackles or wheezes. ABDOMEN: Soft. EXTREMITIES: Legs, edema . LABORATORY DATA: White count 4,500, hemoglobin 9.5, platelet count 136,000. Sodium 137, potassium 5.1, BUN 37, creatinine 1.9, and blood glucose . The patient will be having LEEANN. The patient was seen by neurologist and maintenance aide. IMPRESSION: Respiratory insufficiency, diabetes mellitus, hypertensive cardiovascular disease with congestive heart failure, arthritis, obesity, sleep apnea, and exacerbation of chronic obstructive pulmonary disease. PLAN: To continue with the current medications including bronchodilators and vasodilators and consult . Steve Magana MD
[2018-05-08] MEDS: (Novolog) Insulin Aspart, Recombinant 100 u/ml 10 ml vial SC SCH ×2 (08:34→11:42)
[2018-05-08] MEDS: Brimonidine 0.2% Opth Sol (5ml) OS SCH (10:23)
[2018-05-08] MEDS: Pantoprazole 40 mg EC Tab PO SCH (10:23)
[2018-05-08] MEDS: NIFEdipine 30 mg ER Tab PO SCH (10:23)
--- NOTE | 2018-05-08 10:31 | CP.PCM.PN ---
Subjective - Date & Time of Evaluation Date of Evaluation: 05/08/18 Time of Evaluation: 10:31 Objective - Vital Signs/Intake and Output Vital Signs (last 24 hours): Temp Pulse Resp BP Pulse Ox 97.1 F L 67 20 128/81 98 05/08/18 07:05 05/08/18 07:05 05/08/18 07:05 05/08/18 10:23 05/08/18 07:05 - Medications Medications: Current Medications Acetaminophen (Tylenol 325mg Tab) 650 mg PO Q6 PRN PRN Reason: Fever >100.4 F Last Admin: 05/05/18 10:31 Dose: 650 mg Aspirin (Aspirin Chewable) 81 mg PO DAILY [facility] Last Admin: 05/08/18 10:23 Dose: 81 mg Brimonidine Tartrate (Alphagan 0.2% Opht) 0.05 ml OS BID [facility] Last Admin: 05/08/18 10:23 Dose: 1 drop Carvedilol (Coreg) 6.25 mg PO BID [facility] Last Admin: 05/08/18 10:23 Dose: 6.25 mg Folic Acid (Folic Acid) 1 mg PO DAILY [facility] Last Admin: 05/08/18 10:23 Dose: 1 mg Furosemide (Lasix) 40 mg IVP Q12 [facility] Last Admin: 05/08/18 10:23 Dose: 40 mg Insulin Aspart (Novolog) 0 unit SC [facility]; Protocol Last Admin: 05/08/18 08:34 Dose: Not Given [facility] Nifedipine (Procardia Xl) 30 mg PO DAILY [facility] Last Admin: 05/08/18 10:23 Dose: 30 mg Pantoprazole Sodium (Protonix Ec Tab) 40 mg PO DAILY [facility] Last Admin: 05/08/18 10:23 Dose: 40 mg Rivaroxaban (Xarelto) 15 mg PO DAILY [facility] Last Admin: 05/08/18 10:23 Dose: 15 mg Rosuvastatin Calcium (Crestor) 10 mg PO HS [facility] Last Admin: 05/07/18 21:02 Dose: 10 mg Sitagliptin Phosphate (Januvia) 25 mg PO DAILY [facility] Last Admin: 05/08/18 10:23 Dose: 25 mg Spironolactone (Aldactone) 25 mg PO DAILY [facility] Last Admin: 05/08/18 10:23 Dose: 25 mg Tolterodine Tartrate (Detrol) 2 mg PO BID [facility] Last Admin: 05/08/18 10:23 Dose: 2 mg - Labs Labs: 05/06/18 11:25 05/06/18 11:25 Assessment and Plan - Assessment and Plan (Free Text) Assessment: > EKG: AFIB, no acute ischemic changes > [place] ruled out > ECHO directly viewsed by me: AFIB, normal LVEF, LVH, Markedly dilated LA, RV dysfunction, dilated IVC, moderate PASP at 42-44mmHg, mild-mod TR, aortic sclerosis. > CXR: effusion right, mild congestion > elevated nt-BNP Imopression Acute on chronic diastolic dysfuntion RV failure Moderate PULM HTN Cor Pulmonale AFIB: chronic now s/p LEEANN guided cardioversion 05/07/18 LEEANN 05/07/18 LAE Intra atrial septal aneurysm normal bubble study Normal valves No endocarditis EF 65% calcified right coronary cusp s/p cardioversion AFIB to NSR with 120J of synchronized energy HTN: uncontrolled CKD 3-4 Plan: cont xarelto, lasix 40mg IVP daily transition to PO maintainence, monitor lytes > Increase coreg to 12.5 BID and titrate > continue aldactone 25 daily > added pracardia 30 > anemia w/u
[2018-05-08 11:59] LABS: BASO % 0.9 % (0.0-2.0); EOS # 0.1 K/uL (0.0-0.7); EOS % 3.3 % (0.0-4.0); HEMOGLOBIN 9.5 g/dL (11.0-16.0); LYMPH # 0.7 K/uL (1.0-4.3); MEAN CELL VOLUME 90.2 fL (81.0-99.0); MEAN CORPUSCULAR HEMOGLOBIN 29.1 pg (27.0-31.0); MEAN CORPUSCULAR HGB CONC 32.3 g/dL (33.0-37.0); MEAN PLATELET VOLUME 10.2 fL (7.2-11.7); MONO # 0.7 K/uL (0.0-0.8); NEUT # 2.9 K/uL (1.8-7.0); NEUT % 65.8 % (50.0-75.0); RBC 3.27 Mil/uL (3.80-5.20); RED CELL DISTRIBUTION WIDTH 16.4 % (11.5-14.5); WHITE BLOOD COUNT 4.4 K/uL (4.8-10.8)
[2018-05-08 12:18] LABS: CALCIUM 9.2 mg/dl (8.6-10.4)
--- NOTE | 2018-05-08 13:25 | PCM.HF ---
Heart Failure Core Measure - Heart Failure Ejection Fraction: 40 % or Greater SAVI Inhibitor Prescribed: No Contraindication/Reason for not providing: ef>45 Beta-Christine Prescribed: Carvedilol Angiotensin II Receptor Christine Prescribed: No Contraindication/Reason for not providing: ef>45 AnticoagulationTherapy for Atrial Fibrillation/Atrialflutter: Yes Aldosterone Antagonist Prescribed: Yes Hydralazine Nitrate Prescribed: No Contraindication/Reason for not providing: ef>45 Implantable Cardioverter Defibrillator Therapy: No Contraindication/Reason for not providing: ef>45 Cardiac Resynchronization Therapy Prescribed: Yes Contraindication/Reason for not providing: cardioversion 05/06/18 - Follow up Will be discharged to: Nursing Home Facility ([facility]) Follow Up Date (must be within 7 days from discharge): 05/10/18 Follow Up Time: 14:00
--- NOTE | 2018-05-08 13:25 | CP.PCM.PN ---
Subjective - Date & Time of Evaluation Date of Evaluation: 05/08/18 Time of Evaluation: 11:40 - Subjective Subjective: Patient seen today denies any chest pain, sob, dizziness, palpitations, N/V/D VSS AND LABS REVIEWED - stable s/p LEEANN, Intra atrial septal aneurysm normal bubble study ,M Normal valves No endocarditis ,EF 65% ,calcified right coronary cusp s/p cardioversionto NSR with 120J of synchronized energy Objective - Vital Signs/Intake and Output Vital Signs (last 24 hours): Temp Pulse Resp BP Pulse Ox 97.1 F L 67 20 128/81 98 05/08/18 07:05 05/08/18 07:05 05/08/18 07:05 05/08/18 10:23 05/08/18 07:05 - Medications Medications: Current Medications Acetaminophen (Tylenol 325mg Tab) 650 mg PO Q6 PRN PRN Reason: Fever >100.4 F Last Admin: 05/05/18 10:31 Dose: 650 mg Aspirin (Aspirin Chewable) 81 mg PO DAILY [facility] Last Admin: 05/08/18 10:23 Dose: 81 mg Brimonidine Tartrate (Alphagan 0.2% Opht) 0.05 ml OS BID [facility] Last Admin: 05/08/18 10:23 Dose: 1 drop Carvedilol (Coreg) 6.25 mg PO BID [facility] Last Admin: 05/08/18 10:23 Dose: 6.25 mg Folic Acid (Folic Acid) 1 mg PO DAILY [facility] Last Admin: 05/08/18 10:23 Dose: 1 mg Furosemide (Lasix) 40 mg IVP Q12 [facility] Last Admin: 05/08/18 10:23 Dose: 40 mg Insulin Aspart (Novolog) 0 unit SC [facility]; Protocol Last Admin: 05/08/18 11:42 Dose: Not Given [facility] Nifedipine (Procardia Xl) 30 mg PO DAILY [facility] Last Admin: 05/08/18 10:23 Dose: 30 mg Pantoprazole Sodium (Protonix Ec Tab) 40 mg PO DAILY [facility] Last Admin: 05/08/18 10:23 Dose: 40 mg Rivaroxaban (Xarelto) 15 mg PO DAILY [facility] Last Admin: 05/08/18 10:23 Dose: 15 mg Rosuvastatin Calcium (Crestor) 10 mg PO HS [facility] Last Admin: 05/07/18 21:02 Dose: 10 mg Sitagliptin Phosphate (Januvia) 25 mg PO DAILY [facility] Last Admin: 05/08/18 10:23 Dose: 25 mg Spironolactone (Aldactone) 25 mg PO DAILY [facility] Last Admin: 05/08/18 10:23 Dose: 25 mg Tolterodine Tartrate (Detrol) 2 mg PO BID [facility] Last Admin: 05/08/18 10:23 Dose: 2 mg - Labs Labs: 05/08/18 11:37 05/08/18 11:37 Assessment and Plan - Assessment and Plan (Free Text) Assessment: A/P 77 y/o female with pmhx of Asthma, Diabetes, HTN, Hypercholesterolemia, afib on xaralto presents to the ED complaining of SOB for the last 2 weeks, associated chest pressure, SOB is worse on exertion and LE edema admitted with Acute on chronic diastolic dysfuntion , PULM HTN,Cor PulmonaleAFIB: chronic and HTN: uncontrolled s/p LEEANN, Intra atrial septal aneurysm normal bubble study ,M Normal valves No endocarditis ,EF 65% ,calcified right coronary cusp s/p cardioversion to NSR with 120J of synchronized energy Patient clinically improved seen by Dr. Arroyo today cleared for discharge to [facility] today and Dr. Arroyo will follow the patient at [facility] Discharge plan discussed with patient , who understands and agree with plan
[2018-05-08 16:25] VITALS: BP 119/61; PULSE 62; TEMP 98; O2SAT 99
== END 2018-05-08 16:25 | DRG 291 ==
LOC: C.ER 13:08 → C.9E 15:11 → C.6T 17:49
PROVIDERS: ADMIT Internal Medicine Nephrology; ATTEND Internal Medicine Nephrology
PROC: 5A09357 Assistance with Respiratory Ventilation, Less than 24 Consecutive Hours, Continuous Positive Airway Pressure (ICD-10-PCS; principal; 2018-05-02)
PROC: B24BZZ4 Ultrasonography of Heart with Aorta, Transesophageal (ICD-10-PCS; 2018-05-07)
PROC: 5A2204Z Restoration of Cardiac Rhythm, Single (ICD-10-PCS; 2018-05-07)
DX: I13.0 Hypertensive heart and chronic kidney disease with heart failure and stage 1 through stage 4 chronic kidney disease, or unspecified chronic kidney disease (principal); I50.33 Acute on chronic diastolic (congestive) heart failure; J44.1 Chronic obstructive pulmonary disease with (acute) exacerbation; I48.2 Chronic atrial fibrillation; E78.00 Pure hypercholesterolemia, unspecified; M19.90 Unspecified osteoarthritis, unspecified site; I27.29 Other secondary pulmonary hypertension; G47.30 Sleep apnea, unspecified; E11.22 Type 2 diabetes mellitus with diabetic chronic kidney disease; N18.3 Chronic kidney disease, stage 3 (moderate); E66.9 Obesity, unspecified; D63.1 Anemia in chronic kidney disease